=== PATIENT | male | born 1960 ===

== ENCOUNTER 2024-08-22 17:39 | Outpatient (REF) | payer BC, SELFPAY ==
[2024-08-22 19:12] LABS: HCT 45.5 % (40.0-50.0); HGB 15.6 g/dL (13.5-17.5); MCH 30.1 pg (27.0-33.0); MCHC 34.3 % (32.0-36.0); MCV 88 fL (80-95); MPV 9.3 fL (8.0-11.0); Platelet Count 299 10^3/uL (130-400); RBC 5.18 10^6/uL (4.36-5.78); RDW 11.9 % (11.8-14.1); RDW-SD 38.6 fL; WBC 10.81 10^3/uL (4.4-10.8)
[2024-08-22 19:38] LABS: ALT 42 U/L (16-63); AST 22 U/L (15-37); Albumin 3.9 g/dL (3.4-5.0); Alkaline Phosphatase 84 U/L (46-116); Anion Gap 10.2 mmol/L (3-11); BUN 18 mg/dL (7-18); Bilirubin, Total 0.55 mg/dL (0.2-1.0); CO2 26.8 mmol/L (21.0-32.0); Chloride 106 mmol/L (98-107); Estimated GFR 84.57 (mL/min/1.73m2); Glucose 91 mg/dL (74-106); Potassium 4.1 mmol/L (3.5-5.1); Sodium 143 mmol/L (136-145); Total Protein 7.4 g/dL (6.4-8.2)
== END 2024-08-22 17:40 | disposition home or self-care (01) ==
LOC: NCHCN 17:39
PROVIDERS: PCP Internal Medicine; Visit Provider Physician Assistant
DX: Z01.818 Encounter for other preprocedural examination (principal)
CPT/HCPCS: 80053; 85027

== ENCOUNTER 2024-10-11 12:26 | Outpatient (REF) | payer BC, SELFPAY ==
[2024-10-11 19:54] LABS: Calculated LDL 85 mg/dL (<100); Cholesterol 164 mg/dL (<200); HDL Cholesterol 63 mg/dL (40-60); Triglyceride 82 mg/dL (<150)
[2024-10-11 19:55] LABS: Hemoglobin A1C 5.7 % (<5.7)
[2024-10-14 08:45] LABS: PSA, Screening 1.6 ng/mL (<=4.5)
[2024-10-14 10:06] LABS: HIV-1/2 Ag & Ab Screen Negative (Negative)
[2024-10-14 23:13] LABS: Hepatitis C Ab w Rflx HCV PCR Negative (Negative)
== END 2024-10-11 12:27 | disposition home or self-care (01) ==
LOC: NCHCN 12:26
PROVIDERS: PCP Internal Medicine; Visit Provider Physician Assistant
DX: Z12.5 Encounter for screening for malignant neoplasm of prostate (principal); Z11.59 Encounter for screening for other viral diseases; Z11.4 Encounter for screening for human immunodeficiency virus [HIV]; E66.9 Obesity, unspecified
CPT/HCPCS: 80061; 84153; 86803; 87389; 83036

== ENCOUNTER 2025-01-14 17:35 | Outpatient (REF) | payer BC, SELFPAY ==
[2025-01-14 20:40] LABS: Abs Immature Grans 0.03 10^3/uL (0.0-0.06); Absolute Basophil Count 0.05 10^3/uL (0.0-0.2); Absolute Lymphocyte Count 1.96 10^3/uL (1.2-3.4); Absolute Monocyte Count 0.79 10^3/uL (0.1-0.8); Basophils % 0.5 %; Eosinophils % 1.9 %; HCT 46.1 % (40.0-50.0); HGB 15.5 g/dL (13.5-17.5); Immature Grans % 0.3 %; Lymphocytes % 18.4 %; MCH 29.6 pg (27.0-33.0); MCHC 33.6 % (32.0-36.0); MCV 88 fL (80-95); Monocytes % 7.4 %; Neutrophils % 71.5 %; Platelet Count 334 10^3/uL (130-400); RBC 5.24 10^6/uL (4.36-5.78); RDW 12.2 % (11.8-14.1); WBC 10.63 10^3/uL (4.4-10.8)
[2025-01-14 20:56] LABS: ALT 39 U/L (16-63); AST 22 U/L (15-37); Albumin 3.9 g/dL (3.4-5.0); Alkaline Phosphatase 86 U/L (46-116); Anion Gap 7.4 mmol/L (3-11); BUN 16 mg/dL (7-18); Bilirubin, Total 0.4 mg/dL (0.2-1.0); CO2 28.6 mmol/L (21.0-32.0); CREATININE 0.9 mg/dL (0.70-1.30); Calcium 9.5 mg/dL (8.5-10.1); Chloride 106 mmol/L (98-107); Estimated GFR 95.97 (mL/min/1.73m2); Glucose 87 mg/dL (74-106); Potassium 4.5 mmol/L (3.5-5.1); Sodium 142 mmol/L (136-145); Total Protein 7.4 g/dL (6.4-8.2)
== END 2025-01-14 17:36 | disposition home or self-care (01) ==
LOC: NCHCN 17:35
PROVIDERS: PCP Internal Medicine; Visit Provider Physician Assistant
DX: Z01.818 Encounter for other preprocedural examination (principal)
CPT/HCPCS: 80053; 85025